=== PATIENT | male | born 1940 | race American Indian/Alaskan Native ===

== ENCOUNTER 2022-01-12 20:22 | Emergency (ER) | payer MEDICARE ==
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
[2022-01-12] MEDS ORDERED: ACETAMINOPHEN 325 MG TAB PO PRN (21:35)
[2022-01-12] MEDS ORDERED: diphenhydrAMINE 25 MG CAP PO PRN (21:35)
[2022-01-12] MEDS ORDERED: ALBUTEROL 2.5 MG/3 ML NEBU IH PRN (21:35)
[2022-01-12] MEDS ORDERED: ONDANSETRON 4 MG ODT TAB PO PRN (21:35)
--- NOTE | 2022-01-12 21:43 | Cat Scan Report ---
CT head/brain wo con INDICATION / CLINICAL INFORMATION: 81 years Male; Altered Mental Status. TECHNIQUE: Routine CT head without contrast. All CT scans at this location are performed using CT dos e reduction for ALARA by means of automated exposure control. COMPARISON: None. 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 No acute hemorrhage, mass effect, midline shift, hydrocephalus, or acute, large territorial infarct. Mild, diffuse cerebral and cerebellar atrophy. Moderate to marked degree of hippocampal atrophy sugge sted bilaterally. There are moderate to marked, confluent areas of decreased attenuation in the white matter of the cer ebral hemispheres, as well as the gangliocapsular regions. These are nonspecific findings and may be related to microangiopathy (hypertension, diabetes, atherosclerosis), given the patient's age. It juan ht be difficult to evaluate for small areas of ischemia without diffusion imaging by MRI. CRANIOCERVICAL JUNCTION: No significant abnormality. ORBITS: There may have been a prior inferior orbital wall trauma on the right. Please clinically jimmie elate. The orbits are otherwise grossly normal. SINUSES / MASTOIDS: There is near complete opacification of the right maxillary antrum. ADDITIONAL FINDINGS: Very small, metallic foreign body is seen in the left parietal bone, superficial ly. Please quickly correlate. Atherosclerotic disease is seen in the anterior and posterior circulation. IMPRESSION: 1. No focal mass, hemorrhage, hydrocephalus, or acute, large territorial infarct. Follow-up with diff usion imaging by MRI, as clinically warranted. 2. Right maxillary sinus disease noted. Signer Name: Sanya Kennedy MD, III Signed: 01/12/2022 9:39 PM Workstation Name: [id number]
[2022-01-12 21:51] LABS: Alanine Aminotransferase 171 units/L (7-56); Albumin 4.2 g/dL (3.9-5); Blood Urea Nitrogen 21 mg/dL (9-20); Calcium 8.8 mg/dL (8.4-10.2); Hemolysis Index 1
--- NOTE | 2022-01-12 21:51 | XRay Report ---
CHEST 1 VIEW 01/12/2022 8:40 PM INDICATION / CLINICAL INFORMATION: Altered Mental Status. COMPARISON: None available. FINDINGS: SUPPORT DEVICES: None. HEART / MEDIASTINUM: No significant abnormality. LUNGS / PLEURA: The lungs are hyperexpanded. No focal airspace disease, large pleural effusion, or pn eumothorax. ADDITIONAL FINDINGS: No significant additional findings. IMPRESSION: 1. No acute findings. Signer Name: Lazaro Koroma MD Signed: 01/12/2022 9:47 PM Workstation Name: [id number]
[2022-01-12 21:52] LABS: BUN/Creatinine Ratio 30
[2022-01-12 21:58] LABS: INR 0.9 (0.87-1.13)
[2022-01-12 21:59] LABS: Partial Thromboplastin Time 27.5 Sec. (24.2-36.6)
[2022-01-12 22:03] LABS: Basophils % (Auto) 0.1 % (0.0-1.8); Hematocrit 34.3 % (35.5-45.6); Hemoglobin 11.4 gm/dl (11.8-15.2); Lymphocytes # (Auto) 0.5 K/mm3 (1.2-5.4); Lymphocytes % (Auto) 7.6 % (13.4-35.0); Mean Corpuscular HGB Conc 33 % (32-34); Mean Corpuscular Volume 103 fl (84-94); Monocytes # (Auto) 0.4 K/mm3 (0.0-0.8); Monocytes % (Auto) 5.8 % (0.0-7.3); Platelet Count 192 K/mm3 (140-440); Red Blood Count 3.32 M/mm3 (3.65-5.03); Red Cell Distribution Width 15.1 % (13.2-15.2)
[2022-01-12] MEDS ORDERED: LORazepam 2 MG/ML VIAL IV PRN (22:22)
[2022-01-12] MEDS ORDERED: LORazepam 2 MG TAB PO PRN ×2 (22:22)
[2022-01-12] MEDS ORDERED: chlordiazePOXIDE 25 MG CAP PO PRN ×2 (22:22)
[2022-01-13 00:32] LABS: Bilirubin,Urine NEG (Negative); Blood,Urine NEG (Negative); Color,Urine Amber (Yellow); Mucus,Urine FEW /HPF
[2022-01-13 00:33] LABS: Amphetamine Screen,Urine PRESUMPTIVE NEGATIVE; Benzodiazepines Screen,Urine PRESUMPTIVE NEGATIVE; Cannabinoid Screen,Urine PRESUMPTIVE NEGATIVE; Cocaine Screen,Urine PRESUMPTIVE NEGATIVE; Methadone Screen,Urine PRESUMPTIVE NEGATIVE; Opiate Screen,Urine PRESUMPTIVE NEGATIVE
[2022-01-13] MEDS ORDERED: HALOPERIDOL LACTATE 5 MG/1 ML INJ IM PRN (01:23)
[2022-01-13] MEDS: LORazepam 2 MG/ML VIAL IM PRN ×2 (08:15→17:45)
[2022-01-13] MEDS: THIAMINE 100 MG TAB PO SCH (13:36)
[2022-01-13] MEDS: FOLIC ACID 1 MG TAB PO SCH (13:36)
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
--- NOTE | 2022-01-14 10:46 | Electrocardiograph Report ---
Test Date: 2022-01-12 Test Time: 21:44:03 Pat Name: [facility] Department: Room: Gender: M Evaluation Specialist: SOFIYA : 1940 Requested By: SUMI HOLLY Order Number: [id number] Reading MD: Gabriel Levin Measurements Intervals [place] Rate: 90 P: 85 UT: 147 QRS: 75 QRSD: 99 T: 80 QT: 391 QTc: 480 Interpretive Statements Sinus rhythm No previous ECG available for comparison Electronically Signed On 01-14-2022 10:46:04 EDT by Gabriel Levin
--- NOTE | 2022-01-14 12:51 | Event Note ---
Date: 01/14/22 The patient was evaluated in the emergency department for symptoms described in the history of present illness. He/she was evaluated in the context of the global COVID-19 pandemic, which necessitated consideration that the patient might be at risk for infection with the virus that causes COVID-19. Institutional protocols and algorithms that pertain to the evaluation of patients at risk for COVID-19 are in a state of rapid change based on information released by regulatory bodies including the CDC and federal and state organizations. These policies and algorithms were followed during the patient's care in the emergency department. Please note that these policies, procedures and recommendations changed on a rapid basis. Laboratory studies, vital signs, nursing documentation, ER documentation, and psychiatric documentation are reviewed and appreciated. Nursing team reports no acute events this morning or concerns. The patient is awake and ambulating and does not appear to be in any acute distress. The patient was deemed medically suitable for psychiatric disposition and placement during his initial ER evaluation. The patient continues to remain medically suitable for psychiatric placement and disposition. The psychiatry team have recommended to discharge from their perspective. He is incidentally COVID-positive but not hypoxic or symptomatic at this time. I personally ordered a case management consultation on the night of January 12 when I initially saw this patient, and I do not see that case management saw this sirena ent yesterday on January 13. I contacted case management , and requested case management evaluation to facilitate safe outpatient disposition. I also called up listed phone number for the patient's , went right to voicemail, left voicemail for call back. Patient medically may be discharged at this time, he will need to follow-up with a primary care doctor for his asymptomatic COVID, presumed alcoholic liver disease, and likely dementia. Awaiting callback and coordination from case management to coordinate safe outpatient disposition Vital Signs 01/12/22 01/13/22 01/13/22 20:38 05:59 06:00 Temperature 98.4 F Pulse Rate 100 H 88 91 H Respiratory 18 19 20 Rate Blood Pressure 122/72 152/86 Blood Pressure [Right] O2 Sat by Pulse 95 97 97 Oximetry 01/13/22 01/13/22 01/13/22 07:00 07:46 08:01 Temperature 98.5 F Pulse Rate 114 H 105 H Respiratory 24 18 Rate Blood Pressure 142/96 156/102 Blood Pressure 156/90 [Right] O2 Sat by Pulse 97 99 93 Oximetry 01/13/22 01/13/22 01/13/22 09:01 09:29 10:00 Temperature 98.9 F Pulse Rate 113 H 108 H 107 H Respiratory 15 18 18 Rate Blood Pressure 156/102 113/70 Blood Pressure 124/75 [Right] O2 Sat by Pulse 96 94 99 Oximetry 01/13/22 01/13/22 01/13/22 11:00 12:01 13:00 Temperature Pulse Rate 103 H 120 H 91 H Respiratory 18 27 H 15 Rate Blood Pressure 99/58 142/102 138/85 Blood Pressure [Right] O2 Sat by Pulse 98 98 99 Oximetry 01/13/22 01/13/22 01/13/22 14:00 15:00 16:00 Temperature Pulse Rate 93 H 94 H 90 Respiratory 17 19 18 Rate Blood Pressure 155/101 152/107 159/97 Blood Pressure [Right] O2 Sat by Pulse 95 100 98 Oximetry 01/13/22 01/13/22 01/13/22 16:16 17:00 17:37 Temperature Pulse Rate 110 H 111 H 114 H Respiratory 18 27 H 17 Rate Blood Pressure 146/105 Blood Pressure 159/65 153/100 [Right] O2 Sat by Pulse 99 66 L 100 Oximetry 01/13/22 01/13/22 01/13/22 18:01 18:02 20:30 Temperature 97.6 F Pulse Rate 117 H 92 H Respiratory 30 H 22 Rate Blood Pressure 143/92 Blood Pressure 153/99 [Right] O2 Sat by Pulse 84 98 100 Oximetry 01/13/22 01/13/22 01/13/22 20:32 21:01 22:01 Temperature Pulse Rate 97 H 93 H 100 H Respiratory 19 23 19 Rate Blood Pressure 149/101 141/87 Blood Pressure [Right] O2 Sat by Pulse 100 98 95 Oximetry 01/14/22 01/14/22 01/14/22 00:01 06:00 07:00 Temperature Pulse Rate 83 82 86 Respiratory 14 15 Rate Blood Pressure 160/98 137/89 135/92 Blood Pressure [Right] O2 Sat by Pulse 97 100 95 Oximetry 01/14/22 01/14/22 01/14/22 08:00 09:00 10:00 Temperature Pulse Rate 90 81 87 Respiratory 19 22 19 Rate Blood Pressure 151/100 134/96 139/91 Blood Pressure [Right] O2 Sat by Pulse 98 95 100 Oximetry 01/14/22 12:17 Temperature Pulse Rate 81 Respiratory 18 Rate Blood Pressure Blood Pressure [Right] O2 Sat by Pulse 98 Oximetry Lab Results 01/12/22 01/12/22 01/12/22 Range/Units 21:09 21:09 21:09 WBC 6.1 (4.5-11.0) K/mm3 RBC 3.32 L (3.65-5.03) M/mm3 Hgb 11.4 L (11.8-15.2) gm/dl Hct 34.3 L (35.5-45.6) % MCV 103 H (84-94) fl MCH 35 H (28-32) pg MCHC 33 (32-34) % RDW 15.1 (13.2-15.2) % Plt Count 192 (140-440) K/mm3 Lymph % (Auto) 7.6 L (13.4-35.0) % Cook % (Auto) 5.8 (0.0-7.3) % Eos % (Auto) 0.0 (0.0-4.3) % Baso % (Auto) 0.1 (0.0-1.8) % Lymph # (Auto) 0.5 L (1.2-5.4) K/mm3 Cook # (Auto) 0.4 (0.0-0.8) K/mm3 Eos # (Auto) 0.0 (0.0-0.4) K/mm3 Baso # (Auto) 0.0 (0.0-0.1) K/mm3 Seg Neutrophils % 86.5 H (40.0-70.0) % Seg Neutrophils # 5.3 (1.8-7.7) K/mm3 PT 13.1 (12.2-14.9) Sec. INR 0.90 (0.87-1.13) APTT 27.5 (24.2-36.6) Sec. Sodium 139 (137-145) mmol/L Potassium 3.9 (3.6-5.0) mmol/L Chloride 95.6 L (98-107) mmol/L Carbon Dioxide 21 L (22-30) mmol/L Anion Gap 26 mmol/L BUN 21 H (9-20) mg/dL Creatinine 0.7 L (0.8-1.3) mg/dL Estimated GFR > 60 ml/min BUN/Creatinine Ratio 30 % Glucose 101 H (75-100) mg/dL Calcium 8.8 (8.4-10.2) mg/dL Total Bilirubin 1.00 (0.1-1.2) mg/dL AST 156 H (5-40) units/L ALT 171 H (7-56) units/L Alkaline Phosphatase 125 (35-129) units/L Ammonia (25-60) umol/L Troponin T < 0.010 (0.00-0.029) ng/mL Total Protein 6.2 L (6.3-8.2) g/dL Albumin 4.2 (3.9-5) g/dL Albumin/Globulin Ratio 2.1 % TSH (0.270-4.200) mlU/mL Urine Color (Yellow) Urine Turbidity (Clear) Urine pH (5.0-7.0) Ur Specific [place] (1.003-1.030) Urine Protein (Negative) mg/dL Urine Glucose (UA) (Negative) mg/dL Urine Ketones (Negative) mg/dL Urine Blood (Negative) Urine Nitrite (Negative) Urine Bilirubin (Negative) Urine Urobilinogen (<2.0) mg/dL Ur Leukocyte Esterase (Negative) Urine WBC (Auto) (0.0-6.0) /HPF Urine RBC (Auto) (0.0-6.0) /HPF U Epithel Cells (Auto) (0-13.0) /HPF Urine Mucus /HPF Salicylates (2.8-20.0) mg/dL Urine Opiates Screen Urine Methadone Screen Acetaminophen (10.0-30.0) ug/mL Ur Barbiturates Screen Ur Phencyclidine Scrn Ur Amphetamines Screen U Benzodiazepines Scrn Urine Cocaine Screen U Marijuana (THC) Screen Drugs of Abuse Note Plasma/Serum Alcohol (0-0.07) % Coronavirus (PCR) (Negative) 01/12/22 01/12/22 01/12/22 Range/Units 21:09 21:09 21:09 WBC (4.5-11.0) K/mm3 RBC (3.65-5.03) M/mm3 Hgb (11.8-15.2) gm/dl Hct (35.5-45.6) % MCV (84-94) fl MCH (28-32) pg MCHC (32-34) % RDW (13.2-15.2) % Plt Count (140-440) K/mm3 Lymph % (Auto) (13.4-35.0) % Cook % (Auto) (0.0-7.3) % Eos % (Auto) (0.0-4.3) % Baso % (Auto) (0.0-1.8) % Lymph # (Auto) (1.2-5.4) K/mm3 Cook # (Auto) (0.0-0.8) K/mm3 Eos # (Auto) (0.0-0.4) K/mm3 Baso # (Auto) (0.0-0.1) K/mm3 Seg Neutrophils % (40.0-70.0) % Seg Neutrophils # (1.8-7.7) K/mm3 PT (12.2-14.9) Sec. INR (0.87-1.13) APTT (24.2-36.6) Sec. Sodium (137-145) mmol/L Potassium (3.6-5.0) mmol/L Chloride (98-107) mmol/L Carbon Dioxide (22-30) mmol/L Anion Gap mmol/L BUN (9-20) mg/dL Creatinine (0.8-1.3) mg/dL Estimated GFR ml/min BUN/Creatinine Ratio % Glucose (75-100) mg/dL Calcium (8.4-10.2) mg/dL Total Bilirubin (0.1-1.2) mg/dL AST (5-40) units/L ALT (7-56) units/L Alkaline Phosphatase (35-129) units/L Ammonia 27.0 (25-60) umol/L Troponin T (0.00-0.029) ng/mL Total Protein (6.3-8.2) g/dL Albumin (3.9-5) g/dL Albumin/Globulin Ratio % TSH 1.670 (0.270-4.200) mlU/mL Urine Color (Yellow) Urine Turbidity (Clear) Urine pH (5.0-7.0) Ur Specific [place] (1.003-1.030) Urine Protein (Negative) mg/dL Urine Glucose (UA) (Negative) mg/dL Urine Ketones (Negative) mg/dL Urine Blood (Negative) Urine Nitrite (Negative) Urine Bilirubin (Negative) Urine Urobilinogen (<2.0) mg/dL Ur Leukocyte Esterase (Negative) Urine WBC (Auto) (0.0-6.0) /HPF Urine RBC (Auto) (0.0-6.0) /HPF U Epithel Cells (Auto) (0-13.0) /HPF Urine Mucus /HPF Salicylates < 0.3 L (2.8-20.0) mg/dL Urine Opiates Screen Urine Methadone Screen Acetaminophen (10.0-30.0) ug/mL Ur Barbiturates Screen Ur Phencyclidine Scrn Ur Amphetamines Screen U Benzodiazepines Scrn Urine Cocaine Screen U Marijuana (THC) Screen Drugs of Abuse Note Plasma/Serum Alcohol (0-0.07) % Coronavirus (PCR) (Negative) 01/12/22 01/12/22 01/12/22 Range/Units 21:09 21:09 23:56 WBC (4.5-11.0) K/mm3 RBC (3.65-5.03) M/mm3 Hgb (11.8-15.2) gm/dl Hct (35.5-45.6) % MCV (84-94) fl MCH (28-32) pg MCHC (32-34) % RDW (13.2-15.2) % Plt Count (140-440) K/mm3 Lymph % (Auto) (13.4-35.0) % Cook % (Auto) (0.0-7.3) % Eos % (Auto) (0.0-4.3) % Baso % (Auto) (0.0-1.8) % Lymph # (Auto) (1.2-5.4) K/mm3 [place] # (Auto) (0.0-0.8) K/mm3 Eos # (Auto) (0.0-0.4) K/mm3 Baso # (Auto) (0.0-0.1) K/mm3 Seg Neutrophils % (40.0-70.0) % Seg Neutrophils # (1.8-7.7) K/mm3 PT (12.2-14.9) Sec. INR (0.87-1.13) APTT (24.2-36.6) Sec. Sodium (137-145) mmol/L Potassium (3.6-5.0) mmol/L Chloride (98-107) mmol/L Carbon Dioxide (22-30) mmol/L Anion Gap mmol/L BUN (9-20) mg/dL Creatinine (0.8-1.3) mg/dL Estimated GFR ml/min BUN/Creatinine Ratio % Glucose (75-100) mg/dL Calcium (8.4-10.2) mg/dL Total Bilirubin (0.1-1.2) mg/dL AST (5-40) units/L ALT (7-56) units/L Alkaline Phosphatase (35-129) units/L Ammonia (25-60) umol/L Troponin T (0.00-0.029) ng/mL Total Protein (6.3-8.2) g/dL Albumin (3.9-5) g/dL Albumin/Globulin Ratio % TSH (0.270-4.200) mlU/mL Urine Color [place] (Yellow) Urine Turbidity Clear (Clear) Urine pH 6.0 (5.0-7.0) Ur Specific [place] 1.026 (1.003-1.030) Urine Protein 30 mg/dl (Negative) mg/dL Urine Glucose (UA) Neg (Negative) mg/dL Urine Ketones Tr (Negative) mg/dL Urine Blood Neg (Negative) Urine Nitrite Neg (Negative) Urine Bilirubin Neg (Negative) Urine Urobilinogen 4.0 (<2.0) mg/dL Ur Leukocyte Esterase Neg (Negative) Urine WBC (Auto) 2.0 (0.0-6.0) /HPF Urine RBC (Auto) 5.0 (0.0-6.0) /HPF U Epithel Cells (Auto) 2.0 (0-13.0) /HPF Urine Mucus Few /HPF Salicylates (2.8-20.0) mg/dL Urine Opiates Screen Urine Methadone Screen Acetaminophen 5.0 L (10.0-30.0) ug/mL Ur Barbiturates Screen Ur Phencyclidine Scrn Ur Amphetamines Screen U Benzodiazepines Scrn Urine Cocaine Screen U Marijuana (THC) Screen Drugs of Abuse Note Plasma/Serum Alcohol 0.27 H (0-0.07) % Coronavirus (PCR) (Negative) 01/12/22 01/13/22 Range/Units 23:56 09:48 WBC (4.5-11.0) K/mm3 RBC (3.65-5.03) M/mm3 Hgb (11.8-15.2) gm/dl Hct (35.5-45.6) % MCV (84-94) fl MCH (28-32) pg MCHC (32-34) % RDW (13.2-15.2) % Plt Count (140-440) K/mm3 Lymph % (Auto) (13.4-35.0) % Cook % (Auto) (0.0-7.3) % Eos % (Auto) (0.0-4.3) % Baso % (Auto) (0.0-1.8) % Lymph # (Auto) (1.2-5.4) K/mm3 [place] # (Auto) (0.0-0.8) K/mm3 Eos # (Auto) (0.0-0.4) K/mm3 Baso # (Auto) (0.0-0.1) K/mm3 Seg Neutrophils % (40.0-70.0) % Seg Neutrophils # (1.8-7.7) K/mm3 PT (12.2-14.9) Sec. INR (0.87-1.13) APTT (24.2-36.6) Sec. Sodium (137-145) mmol/L Potassium (3.6-5.0) mmol/L Chloride (98-107) mmol/L Carbon Dioxide (22-30) mmol/L Anion Gap mmol/L BUN (9-20) mg/dL Creatinine (0.8-1.3) mg/dL Estimated GFR ml/min BUN/Creatinine Ratio % Glucose (75-100) mg/dL Calcium (8.4-10.2) mg/dL Total Bilirubin (0.1-1.2) mg/dL AST (5-40) units/L ALT (7-56) units/L Alkaline Phosphatase (35-129) units/L Ammonia (25-60) umol/L Troponin T (0.00-0.029) ng/mL Total Protein (6.3-8.2) g/dL Albumin (3.9-5) g/dL Albumin/Globulin Ratio % TSH (0.270-4.200) mlU/mL Urine Color (Yellow) Urine Turbidity (Clear) Urine pH (5.0-7.0) Ur Specific [place] (1.003-1.030) Urine Protein (Negative) mg/dL Urine Glucose (UA) (Negative) mg/dL Urine Ketones (Negative) mg/dL Urine Blood (Negative) Urine Nitrite (Negative) Urine Bilirubin (Negative) Urine Urobilinogen (<2.0) mg/dL Ur Leukocyte Esterase (Negative) Urine WBC (Auto) (0.0-6.0) /HPF Urine RBC (Auto) (0.0-6.0) /HPF U Epithel Cells (Auto) (0-13.0) /HPF Urine Mucus /HPF Salicylates (2.8-20.0) mg/dL Urine Opiates Screen Presumptive negative Urine Methadone Screen Presumptive negative Acetaminophen (10.0-30.0) ug/mL Ur Barbiturates Screen Presumptive negative Ur Phencyclidine Scrn Presumptive negative Ur Amphetamines Screen Presumptive negative U Benzodiazepines Scrn Presumptive negative Urine Cocaine Screen Presumptive negative U Marijuana (THC) Screen Presumptive negative Drugs of Abuse Note Disclamer Plasma/Serum Alcohol (0-0.07) % Coronavirus (PCR) Positive A (Negative)
[2022-01-15] MEDS: THIAMINE 100 MG TAB PO SCH ×2 (08:52→09:51)
[2022-01-15] MEDS: FOLIC ACID 1 MG TAB PO SCH ×2 (08:52→09:51)
[2022-01-15 10:04] VITALS: BP 129/80
--- NOTE | 2022-01-15 14:11 | Event Note ---
Date: 01/15/22 Case management has been able to secure successful and safe outpatient arrangements for this patient. Vital signs unremarkable, and nursing team endorses no acute issues this morning. Patient is awake and ambulatory. He may be discharged with outpatient follow- up. Vital Signs 01/12/22 01/13/22 01/13/22 20:38 05:59 06:00 Temperature 98.4 F Pulse Rate 100 H 88 91 H Respiratory 18 19 20 Rate Blood Pressure 122/72 152/86 Blood Pressure [Right] O2 Sat by Pulse 95 97 97 Oximetry 01/13/22 01/13/22 01/13/22 07:00 07:46 08:01 Temperature 98.5 F Pulse Rate 114 H 105 H Respiratory 24 18 Rate Blood Pressure 142/96 156/102 Blood Pressure 156/90 [Right] O2 Sat by Pulse 97 99 93 Oximetry 01/13/22 01/13/22 01/13/22 09:01 09:29 10:00 Temperature 98.9 F Pulse Rate 113 H 108 H 107 H Respiratory 15 18 18 Rate Blood Pressure 156/102 113/70 Blood Pressure 124/75 [Right] O2 Sat by Pulse 96 94 99 Oximetry 01/13/22 01/13/22 01/13/22 11:00 12:01 13:00 Temperature Pulse Rate 103 H 120 H 91 H Respiratory 18 27 H 15 Rate Blood Pressure 99/58 142/102 138/85 Blood Pressure [Right] O2 Sat by Pulse 98 98 99 Oximetry 01/13/22 01/13/22 01/13/22 14:00 15:00 16:00 Temperature Pulse Rate 93 H 94 H 90 Respiratory 17 19 18 Rate Blood Pressure 155/101 152/107 159/97 Blood Pressure [Right] O2 Sat by Pulse 95 100 98 Oximetry 01/13/22 01/13/22 01/13/22 16:16 17:00 17:37 Temperature Pulse Rate 110 H 111 H 114 H Respiratory 18 27 H 17 Rate Blood Pressure 146/105 Blood Pressure 159/65 153/100 [Right] O2 Sat by Pulse 99 66 L 100 Oximetry 01/13/22 01/13/22 01/13/22 18:01 18:02 20:30 Temperature 97.6 F Pulse Rate 117 H 92 H Respiratory 30 H 22 Rate Blood Pressure 143/92 Blood Pressure 153/99 [Right] O2 Sat by Pulse 84 98 100 Oximetry 01/13/22 01/13/22 01/13/22 20:32 21:01 22:01 Temperature Pulse Rate 97 H 93 H 100 H Respiratory 19 23 19 Rate Blood Pressure 149/101 141/87 Blood Pressure [Right] O2 Sat by Pulse 100 98 95 Oximetry 01/14/22 01/14/22 01/14/22 00:01 06:00 07:00 Temperature Pulse Rate 83 82 86 Respiratory 14 15 Rate Blood Pressure 160/98 137/89 135/92 Blood Pressure [Right] O2 Sat by Pulse 97 100 95 Oximetry 01/14/22 01/14/22 01/14/22 08:00 09:00 10:00 Temperature Pulse Rate 90 81 87 Respiratory 19 22 19 Rate Blood Pressure 151/100 134/96 139/91 Blood Pressure [Right] O2 Sat by Pulse 98 95 100 Oximetry 01/14/22 01/14/22 01/14/22 11:00 12:00 12:17 Temperature Pulse Rate 86 91 H 81 Respiratory 14 19 18 Rate Blood Pressure 143/90 117/93 Blood Pressure [Right] O2 Sat by Pulse 96 98 98 Oximetry 01/14/22 01/14/22 01/14/22 13:00 14:00 15:00 Temperature Pulse Rate 94 H 98 H 102 H Respiratory 16 16 20 Rate Blood Pressure 117/84 119/82 104/74 Blood Pressure [Right] O2 Sat by Pulse 96 99 99 Oximetry 01/14/22 01/14/22 01/14/22 16:00 17:00 18:00 Temperature Pulse Rate 93 H Respiratory 20 Rate Blood Pressure 133/92 132/94 139/101 Blood Pressure [Right] O2 Sat by Pulse 92 56 L 42 L Oximetry 01/14/22 01/14/22 01/14/22 19:00 20:01 20:26 Temperature Pulse Rate 94 H Respiratory 22 Rate Blood Pressure 138/86 135/90 135/90 Blood Pressure [Right] O2 Sat by Pulse 72 L 39 L 75 L Oximetry 01/14/22 01/14/22 01/14/22 21:00 22:30 23:00 Temperature Pulse Rate Respiratory Rate Blood Pressure 135/90 138/97 129/89 Blood Pressure [Right] O2 Sat by Pulse 89 85 Oximetry 01/15/22 01/15/22 01/15/22 03:53 06:53 08:01 Temperature 98.3 F 98.0 F 98.1 F Pulse Rate 80 65 78 Respiratory 18 18 18 Rate Blood Pressure Blood Pressure 110/88 128/72 109/70 [Right] O2 Sat by Pulse 97 98 98 Oximetry 01/15/22 10:02 Temperature Pulse Rate 88 Respiratory 15 Rate Blood Pressure Blood Pressure 129/80 [Right] O2 Sat by Pulse 99 Oximetry Lab Results 01/12/22 01/12/22 01/12/22 Range/Units 21:09 21:09 21:09 WBC 6.1 (4.5-11.0) K/mm3 RBC 3.32 L (3.65-5.03) M/mm3 Hgb 11.4 L (11.8-15.2) gm/dl Hct 34.3 L (35.5-45.6) % MCV 103 H (84-94) fl MCH 35 H (28-32) pg MCHC 33 (32-34) % RDW 15.1 (13.2-15.2) % Plt Count 192 (140-440) K/mm3 Lymph % (Auto) 7.6 L (13.4-35.0) % [place] % (Auto) 5.8 (0.0-7.3) % Eos % (Auto) 0.0 (0.0-4.3) % Baso % (Auto) 0.1 (0.0-1.8) % Lymph # (Auto) 0.5 L (1.2-5.4) K/mm3 [place] # (Auto) 0.4 (0.0-0.8) K/mm3 Eos # (Auto) 0.0 (0.0-0.4) K/mm3 Baso # (Auto) 0.0 (0.0-0.1) K/mm3 Seg Neutrophils % 86.5 H (40.0-70.0) % Seg Neutrophils # 5.3 (1.8-7.7) K/mm3 PT 13.1 (12.2-14.9) Sec. INR 0.90 (0.87-1.13) APTT 27.5 (24.2-36.6) Sec. Sodium 139 (137-145) mmol/L Potassium 3.9 (3.6-5.0) mmol/L Chloride 95.6 L (98-107) mmol/L Carbon Dioxide 21 L (22-30) mmol/L Anion Gap 26 mmol/L BUN 21 H (9-20) mg/dL Creatinine 0.7 L (0.8-1.3) mg/dL Estimated GFR > 60 ml/min BUN/Creatinine Ratio 30 % Glucose 101 H (75-100) mg/dL Calcium 8.8 (8.4-10.2) mg/dL Total Bilirubin 1.00 (0.1-1.2) mg/dL AST 156 H (5-40) units/L ALT 171 H (7-56) units/L Alkaline Phosphatase 125 (35-129) units/L Ammonia (25-60) umol/L Troponin T < 0.010 (0.00-0.029) ng/mL Total Protein 6.2 L (6.3-8.2) g/dL Albumin 4.2 (3.9-5) g/dL Albumin/Globulin Ratio 2.1 % TSH (0.270-4.200) mlU/mL Urine Color (Yellow) Urine Turbidity (Clear) Urine pH (5.0-7.0) Ur Specific [place] (1.003-1.030) Urine Protein (Negative) mg/dL Urine Glucose (UA) (Negative) mg/dL Urine Ketones (Negative) mg/dL Urine Blood (Negative) Urine Nitrite (Negative) Urine Bilirubin (Negative) Urine Urobilinogen (<2.0) mg/dL Ur Leukocyte Esterase (Negative) Urine WBC (Auto) (0.0-6.0) /HPF Urine RBC (Auto) (0.0-6.0) /HPF U Epithel Cells (Auto) (0-13.0) /HPF Urine Mucus /HPF Salicylates (2.8-20.0) mg/dL Urine Opiates Screen Urine Methadone Screen Acetaminophen (10.0-30.0) ug/mL Ur Barbiturates Screen Ur Phencyclidine Scrn Ur Amphetamines Screen U Benzodiazepines Scrn Urine Cocaine Screen U Marijuana (THC) Screen Drugs of Abuse Note Plasma/Serum Alcohol (0-0.07) % Coronavirus (PCR) (Negative) 01/12/22 01/12/22 01/12/22 Range/Units 21:09 21:09 21:09 WBC (4.5-11.0) K/mm3 RBC (3.65-5.03) M/mm3 Hgb (11.8-15.2) gm/dl Hct (35.5-45.6) % MCV (84-94) fl MCH (28-32) pg MCHC (32-34) % RDW (13.2-15.2) % Plt Count (140-440) K/mm3 Lymph % (Auto) (13.4-35.0) % [place] % (Auto) (0.0-7.3) % Eos % (Auto) (0.0-4.3) % Baso % (Auto) (0.0-1.8) % Lymph # (Auto) (1.2-5.4) K/mm3 [place] # (Auto) (0.0-0.8) K/mm3 Eos # (Auto) (0.0-0.4) K/mm3 Baso # (Auto) (0.0-0.1) K/mm3 Seg Neutrophils % (40.0-70.0) % Seg Neutrophils # (1.8-7.7) K/mm3 PT (12.2-14.9) Sec. INR (0.87-1.13) APTT (24.2-36.6) Sec. Sodium (137-145) mmol/L Potassium (3.6-5.0) mmol/L Chloride (98-107) mmol/L Carbon Dioxide (22-30) mmol/L Anion Gap mmol/L BUN (9-20) mg/dL Creatinine (0.8-1.3) mg/dL Estimated GFR ml/min BUN/Creatinine Ratio % Glucose (75-100) mg/dL Calcium (8.4-10.2) mg/dL Total Bilirubin (0.1-1.2) mg/dL AST (5-40) units/L ALT (7-56) units/L Alkaline Phosphatase (35-129) units/L Ammonia 27.0 (25-60) umol/L Troponin T (0.00-0.029) ng/mL Total Protein (6.3-8.2) g/dL Albumin (3.9-5) g/dL Albumin/Globulin Ratio % TSH 1.670 (0.270-4.200) mlU/mL Urine Color (Yellow) Urine Turbidity (Clear) Urine pH (5.0-7.0) Ur Specific [place] (1.003-1.030) Urine Protein (Negative) mg/dL Urine Glucose (UA) (Negative) mg/dL Urine Ketones (Negative) mg/dL Urine Blood (Negative) Urine Nitrite (Negative) Urine Bilirubin (Negative) Urine Urobilinogen (<2.0) mg/dL Ur Leukocyte Esterase (Negative) Urine WBC (Auto) (0.0-6.0) /HPF Urine RBC (Auto) (0.0-6.0) /HPF U Epithel Cells (Auto) (0-13.0) /HPF Urine Mucus /HPF Salicylates < 0.3 L (2.8-20.0) mg/dL Urine Opiates Screen Urine Methadone Screen Acetaminophen (10.0-30.0) ug/mL Ur Barbiturates Screen Ur Phencyclidine Scrn Ur Amphetamines Screen U Benzodiazepines Scrn Urine Cocaine Screen U Marijuana (THC) Screen Drugs of Abuse Note Plasma/Serum Alcohol (0-0.07) % Coronavirus (PCR) (Negative) 01/12/22 01/12/22 01/12/22 Range/Units 21:09 21:09 23:56 WBC (4.5-11.0) K/mm3 RBC (3.65-5.03) M/mm3 Hgb (11.8-15.2) gm/dl Hct (35.5-45.6) % MCV (84-94) fl MCH (28-32) pg MCHC (32-34) % RDW (13.2-15.2) % Plt Count (140-440) K/mm3 Lymph % (Auto) (13.4-35.0) % [place] % (Auto) (0.0-7.3) % Eos % (Auto) (0.0-4.3) % Baso % (Auto) (0.0-1.8) % Lymph # (Auto) (1.2-5.4) K/mm3 [place] # (Auto) (0.0-0.8) K/mm3 Eos # (Auto) (0.0-0.4) K/mm3 Baso # (Auto) (0.0-0.1) K/mm3 Seg Neutrophils % (40.0-70.0) % Seg Neutrophils # (1.8-7.7) K/mm3 PT (12.2-14.9) Sec. INR (0.87-1.13) APTT (24.2-36.6) Sec. Sodium (137-145) mmol/L Potassium (3.6-5.0) mmol/L Chloride (98-107) mmol/L Carbon Dioxide (22-30) mmol/L Anion Gap mmol/L BUN (9-20) mg/dL Creatinine (0.8-1.3) mg/dL Estimated GFR ml/min BUN/Creatinine Ratio % Glucose (75-100) mg/dL Calcium (8.4-10.2) mg/dL Total Bilirubin (0.1-1.2) mg/dL AST (5-40) units/L ALT (7-56) units/L Alkaline Phosphatase (35-129) units/L Ammonia (25-60) umol/L Troponin T (0.00-0.029) ng/mL Total Protein (6.3-8.2) g/dL Albumin (3.9-5) g/dL Albumin/Globulin Ratio % TSH (0.270-4.200) mlU/mL Urine Color Dotty (Yellow) Urine Turbidity Clear (Clear) Urine pH 6.0 (5.0-7.0) Ur Specific [place] 1.026 (1.003-1.030) Urine Protein 30 mg/dl (Negative) mg/dL Urine Glucose (UA) Neg (Negative) mg/dL Urine Ketones Tr (Negative) mg/dL Urine Blood Neg (Negative) Urine Nitrite Neg (Negative) Urine Bilirubin Neg (Negative) Urine Urobilinogen 4.0 (<2.0) mg/dL Ur Leukocyte Esterase Neg (Negative) Urine WBC (Auto) 2.0 (0.0-6.0) /HPF Urine RBC (Auto) 5.0 (0.0-6.0) /HPF U Epithel Cells (Auto) 2.0 (0-13.0) /HPF Urine Mucus Few /HPF Salicylates (2.8-20.0) mg/dL Urine Opiates Screen Urine Methadone Screen Acetaminophen 5.0 L (10.0-30.0) ug/mL Ur Barbiturates Screen Ur Phencyclidine Scrn Ur Amphetamines Screen U Benzodiazepines Scrn Urine Cocaine Screen U Marijuana (THC) Screen Drugs of Abuse Note Plasma/Serum Alcohol 0.27 H (0-0.07) % Coronavirus (PCR) (Negative) 01/12/22 01/13/22 Range/Units 23:56 09:48 WBC (4.5-11.0) K/mm3 RBC (3.65-5.03) M/mm3 Hgb (11.8-15.2) gm/dl Hct (35.5-45.6) % MCV (84-94) fl MCH (28-32) pg MCHC (32-34) % RDW (13.2-15.2) % Plt Count (140-440) K/mm3 Lymph % (Auto) (13.4-35.0) % [place] % (Auto) (0.0-7.3) % Eos % (Auto) (0.0-4.3) % Baso % (Auto) (0.0-1.8) % Lymph # (Auto) (1.2-5.4) K/mm3 [place] # (Auto) (0.0-0.8) K/mm3 Eos # (Auto) (0.0-0.4) K/mm3 Baso # (Auto) (0.0-0.1) K/mm3 Seg Neutrophils % (40.0-70.0) % Seg Neutrophils # (1.8-7.7) K/mm3 PT (12.2-14.9) Sec. INR (0.87-1.13) APTT (24.2-36.6) Sec. Sodium (137-145) mmol/L Potassium (3.6-5.0) mmol/L Chloride (98-107) mmol/L Carbon Dioxide (22-30) mmol/L Anion Gap mmol/L BUN (9-20) mg/dL Creatinine (0.8-1.3) mg/dL Estimated GFR ml/min BUN/Creatinine Ratio % Glucose (75-100) mg/dL Calcium (8.4-10.2) mg/dL Total Bilirubin (0.1-1.2) mg/dL AST (5-40) units/L ALT (7-56) units/L Alkaline Phosphatase (35-129) units/L Ammonia (25-60) umol/L Troponin T (0.00-0.029) ng/mL Total Protein (6.3-8.2) g/dL Albumin (3.9-5) g/dL Albumin/Globulin Ratio % TSH (0.270-4.200) mlU/mL Urine Color (Yellow) Urine Turbidity (Clear) Urine pH (5.0-7.0) Ur Specific [place] (1.003-1.030) Urine Protein (Negative) mg/dL Urine Glucose (UA) (Negative) mg/dL Urine Ketones (Negative) mg/dL Urine Blood (Negative) Urine Nitrite (Negative) Urine Bilirubin (Negative) Urine Urobilinogen (<2.0) mg/dL Ur Leukocyte Esterase (Negative) Urine WBC (Auto) (0.0-6.0) /HPF Urine RBC (Auto) (0.0-6.0) /HPF U Epithel Cells (Auto) (0-13.0) /HPF Urine Mucus /HPF Salicylates (2.8-20.0) mg/dL Urine Opiates Screen Presumptive negative Urine Methadone Screen Presumptive negative Acetaminophen (10.0-30.0) ug/mL Ur Barbiturates Screen Presumptive negative Ur Phencyclidine Scrn Presumptive negative Ur Amphetamines Screen Presumptive negative U Benzodiazepines Scrn Presumptive negative Urine Cocaine Screen Presumptive negative U Marijuana (THC) Screen Presumptive negative Drugs of Abuse Note Disclamer Plasma/Serum Alcohol (0-0.07) % Coronavirus (PCR) Positive A (Negative)
== END 2022-01-15 15:06 | disposition home or self-care (01) ==
LOC: ED 20:22
DX: U07.1 COVID-19 (principal); Z04.6 Encounter for general psychiatric examination, requested by authority; J44.9 Chronic obstructive pulmonary disease, unspecified; K70.9 Alcoholic liver disease, unspecified; F10.129 Alcohol abuse with intoxication, unspecified; F20.1 Disorganized schizophrenia; Y90.9 Presence of alcohol in blood, level not specified; Z79.899 Other long term (current) drug therapy
CPT/HCPCS: 36415; 70450; 71045; 80053; 80307; 81001; 82140; 84443; 84484; 85025; 85610; 85730; 87076; 87086; 87186; 93005; 94640; 96372; 99285; J2060; U0003; 80320; G0480